=== PATIENT | male | born 2000 | race African-American/Black ===

== ENCOUNTER 2024-03-14 07:57 | Emergency (ER) | payer MEDICAID ==
[~2024-03-14] VITALS: Ht 175.3 cm; Wt 81.6 kg
[2024-03-14 08:18] VITALS: BP_SYST 133; PULSE 85; RESP 18; TEMP 98.3; O2SAT 98
[2024-03-14] MEDS: MORPHINE 4 MG INJ. 4 MG/ML VIAL IVP ONE (09:01)
[2024-03-14] MEDS: LORazepam 2 MG/ML VIAL IVP ONE (09:02)
[2024-03-14 09:13] VITALS: BP_SYST 114; PULSE 88; RESP 17; TEMP 98.3; O2SAT 98
== END 2024-03-14 10:32 | disposition home or self-care (01) ==
LOC: SED 07:57
DX: S43.004A Unspecified dislocation of right shoulder joint, initial encounter (principal); W22.8XXA Striking against or struck by other objects, initial encounter; Y93.71 Activity, boxing; Y92.89 Other specified places as the place of occurrence of the external cause; Y99.8 Other external cause status
CPT/HCPCS: 99284; 96374; 96375; 73030; J2060; J2270